=== PATIENT | male | born 1955 | race Caucasian/White ===

== ENCOUNTER 2017-06-16 03:32 | Inpatient (IN) | payer MEDICARE, MEDICAID ==
[~2017-06-16] VITALS: Ht 177.8 cm; Wt 138.3 kg
--- NOTE | 2017-06-16 04:10 | NUR ---
PATIENT IS A POOR HISTORIAN. DOES NOT REMEMBER ALL MEDICATION TAKING AT HOME AND DOSAGES
[2017-06-16] MEDS ORDERED: ACETAMINOPHEN/CODEINE 300-30 MG TABLET PO ONE (04:30)
[2017-06-16] MEDS ORDERED: QUET25TA PO (04:46)
[2017-06-16] MEDS ORDERED: ASPI-605 PO (04:46)
[2017-06-16] MEDS ORDERED: HYDR-4077 PO (04:46)
[2017-06-16] MEDS ORDERED: ARIP2TAB3 PO (04:46)
[2017-06-16] MEDS ORDERED: TRAZ-147 PO (04:46)
--- NOTE | 2017-06-16 04:50 | NUR ---
Pt. admitted to [facility], under care of Dr. Rome Belongs List completed
[2017-06-16] MEDS ORDERED: ACETAMINOPHEN/CODEINE 300-30 MG TABLET ONE (04:51)
[2017-06-16] MEDS ORDERED: ACETAMINOPHEN 325 MG TABLET PO PRN (05:15)
[2017-06-16] MEDS ORDERED: ZOLPIDEM 5 MG TABLET PO PRN (05:15)
[2017-06-16] MEDS ORDERED: MAGNESIUM HYDROXIDE 30 ML LIQUID UDC PO PRN (05:15)
[2017-06-16] MEDS ORDERED: LORAZEPAM 1 MG TABLET PO PRN (05:15)
[2017-06-16] MEDS ORDERED: MAG HYDROX/AL HYDROX/SIMETH 30 ML LIQUID UDC PO PRN (05:15)
[2017-06-16 05:30] VITALS: BP 146/93
--- NOTE | 2017-06-16 06:27 | NUR ---
received to care, from the emergency room, a resident of [facility] and care, a transfer from [facility], where he stated he would cut his neck, if he had to go back to his facility. he has a history of multiple suicide attempts in the past, including a very serious attempt in 1991, when he overdosed and was in a coma. upon arrival, he was calm and cooperative. denies SI at this time. agreed to contact for safety, while in the hospital. he arrived at 0500. assisted with a shower after interview, and assisted to bed. as of 626, he remains asleep. no distress noted. will continue to monitor closely.
[2017-06-16 08:08] VITALS: BP 160/93
[2017-06-16] MEDS: NICOTINE 7 MG/24HR PATCH TD SCH (09:27)
--- NOTE | 2017-06-16 10:53 | NUR ---
As recommended and endorse this morning pt's sister Ms. Violet Gibbons called and notified of pt's admission to [facility]. questions regarding admission answered.
[2017-06-16] MEDS ORDERED: hydrALAZINE HCL 50 MG TABLET PO SCH (12:30)
[2017-06-16 15:36] LABS: BASOPHILS # (AUTO) 0.3 K/uL (0.0-8.0); BASOPHILS % (AUTO) 2.5 % (0.0-2.0); EOSINOPHILS # (AUTO) 0.1 K/uL (0.0-0.7); EOSINOPHILS % (AUTO) 0.6 % (0.0-7.0); HEMATOCRIT 37.5 % (40-50); HEMOGLOBIN 12.1 G/DL (14.0-18.0); LYMPHOCYTES # (AUTO) 2.4 K/UL (0.8-4.8); LYMPHOCYTES % (AUTO) 23.1 % (20.5-51.5); MEAN CORPUSCULAR HEMOGLOBIN 26.6 UUG (27.0-31.0); MEAN CORPUSCULAR HGB CONC 32 g/dL (32.0-37.0); MEAN CORPUSCULAR VOLUME 82.7 FL (82.0-92.0); MONOCYTES # (AUTO) 1.9 K/UL (0.1-1.30); MONOCYTES % (AUTO) 18.4 % (0.0-11.0); NEUTROPHILS # (AUTO) 5.6 K/UL (1.8-8.9); NEUTROPHILS % (AUTO) 55.4 % (38.5-71.5); PLATELET COUNT (AUTO) 249 K/UL (150-450); RED BLOOD CELL COUNT(AUTO) 4.54 MIL/UL (4.7-6.1); WHITE BLOOD COUNT (AUTO) 10.3 K/UL (4.0-11.2)
[2017-06-16 15:45] LABS: CREATININE 1.2 mg/dL (0.6-1.3); POTASSIUM 4.2 mmol/L (3.5-5.1)
[2017-06-16 16:02] LABS: EOSINOPHILS % (MANUAL) 2 % (0-8); LYMPHOCYTES % (MANUAL) 19 % (20-40); MONOCYTES % (MANUAL) 19 % (2-10); NEUTROPHILS % (MANUAL) 60 % (42-75)
[2017-06-16] MEDS: QUETIAPINE FUMARATE 25 MG TABLET PO SCH ×2 (16:42→20:09)
[2017-06-16] MEDS ORDERED: PNEUMOCOCCAL 23-VAL P-SAC VAC 0.5 ML VIAL IM ONE (17:00)
[2017-06-16 17:21] VITALS: BP 156/95
[2017-06-16] MEDS: HYDROCODONE/APAP 5-325MG TABLET PO PRN (20:10)
[2017-06-16] MEDS: ENOXAPARIN SODIUM 40 MG/0.4 ML DISP.SYRIN SQ SCH (20:12)
[2017-06-16 20:35] VITALS: BP 165/94
--- NOTE | 2017-06-16 21:26 | NUR ---
At approx 2004, Patient complain of lower back pain 9/10 in the pain intensity scale, V/S were B/P 165/94mmHg; pulse 60 and O2 sat 97%. [place] 5-325mg was given at 2109. Rechecked at 2119, patient stated "It is improved". V/S: B/P 128/60 pulse 51bpm and O2 sat 94%. Patient noted A/O x 3 and responsive. No changes in LOC. we will continue to monitor.
[2017-06-17] MEDS: HYDROCODONE/APAP 5-325MG TABLET PO PRN ×2 (04:22→22:58)
--- NOTE | 2017-06-17 06:19 | NUR ---
[place] 5-325mg PO PRN was given at 0120. Patient slept for 7 hrs through the night. No SI noted or reported during the shift.
[2017-06-17 07:30] VITALS: BP 122/83
[2017-06-17] MEDS: ESCITALOPRAM OXALATE 10 MG TABLET PO SCH (10:20)
[2017-06-17] MEDS: NICOTINE 7 MG/24HR PATCH TD SCH (10:20)
[2017-06-17] MEDS: ASPIRIN EC 81 MG TABLET.DR PO SCH (10:20)
[2017-06-17] MEDS: hydrALAZINE HCL 50 MG TABLET PO SCH ×5 (10:21→17:33)
[2017-06-17] MEDS: QUETIAPINE FUMARATE 25 MG TABLET PO SCH ×3 (10:22→20:09)
--- NOTE | 2017-06-17 15:25 | NUR ---
Initial discharge instructions: Pt was residing at a [facility] [[address] [place],[address];[phone]] prior to being hospitalized.Per pt,he does not want to return to the [facility],and is requesting new placement.SHELLIE called pt's sister,Violet Roberts [phone] and left voicemail requesting call back to discuss discharge plans.SHELLIE will speak with pt,sister,and MD regarding discharge plans.SW will form safe and proper discharge.
[2017-06-17 16:00] VITALS: BP 150/93
--- NOTE | 2017-06-17 18:42 | NUR ---
PATIENT STILL DEPRESSED AND SLEEPING MOST OF SHIFT LITTLE SELF DIS CLOUSURE TO STAFF, NO S.I VOICED CONTINUE TO MONITOR FOR SAFETY
--- NOTE | 2017-06-17 19:30 | NUR ---
RECEIVED PATIENT LAYING COMFORTABLY IN BED. NO ACUTE DISTRESS NOTED. PATIENT IS ALERT AND ORIENTED X 4. NO SUICIDAL IDEATIONS. HOWEVER, PATIENT DID SAY HE FEELS DEPRESS. BUT NO PLAN TO HARM HIMSELF AT THE MOMENT. SAFETY INITIATED. WILL CONTINUE TO MONITOR FOR SAFETY. PATIENT C/O OF PAIN. WILL REVIEW MEDS, WILL GIVE MEDS ORDERED.
[2017-06-17] MEDS: ENOXAPARIN SODIUM 40 MG/0.4 ML DISP.SYRIN SQ SCH (20:12)
[2017-06-17 20:16] VITALS: BP 134/74
--- NOTE | 2017-06-17 22:58 | NUR ---
PATIENT C/O BACK PAIN 05/07. GAVE MEDICATION, STATED RELIEF.
--- NOTE | 2017-06-18 06:13 | NUR ---
NO CHANGES T/O SHIFT. PATIENT SLEPT 6.5 HOURS. NO BEHAVIORAL CHANGES. NO NOTED SUICIDAL IDEATIONS. SAFETY AND COMFORT MEASURES MAINTAINED T/O SHIFT. VSS. ALL MEDS GIVEN ORDERED. SHOWER CARE PROVIDED. TOTAL LINEN CHANGE. ALL NEEDS MET.
[2017-06-18 07:30] VITALS: BP 144/80
[2017-06-18] MEDS: hydrALAZINE HCL 50 MG TABLET PO SCH (08:32)
[2017-06-18] MEDS: QUETIAPINE FUMARATE 25 MG TABLET PO SCH ×2 (08:34→16:53)
[2017-06-18] MEDS: ESCITALOPRAM OXALATE 10 MG TABLET PO SCH (08:34)
[2017-06-18] MEDS: NICOTINE 7 MG/24HR PATCH TD SCH (08:35)
[2017-06-18] MEDS: ASPIRIN EC 81 MG TABLET.DR PO SCH (08:35)
[2017-06-18] MEDS: HYDROCODONE/APAP 5-325MG TABLET PO PRN ×2 (10:01→20:41)
[2017-06-18 15:00] VITALS: BP 136/68
[2017-06-18 20:14] VITALS: BP 135/85
[2017-06-18] MEDS: QUETIAPINE FUMARATE 100 MG TABLET PO SCH (20:26)
[2017-06-18] MEDS: ENOXAPARIN SODIUM 40 MG/0.4 ML DISP.SYRIN SQ SCH (20:29)
[2017-06-18] MEDS ORDERED: QUETIAPINE FUMARATE 25 MG TABLET PO SCH (21:00)
--- NOTE | 2017-06-18 22:00 | NUR ---
received to care, ambulating in the hallway, appearing anxious, but easy to redirect. compliant with medications and staff direction. denies SI, or the desire to harm self. PRN norco was given at 2040, for lower back pain 04/06. as of 2199, he appears to be asleep. no distress noted. will continue to monitor closely.
--- NOTE | 2017-06-19 03:06 | NUR ---
PRN ativan given for anxiety.
--- NOTE | 2017-06-19 06:00 | NUR ---
slept 6.5 hours, total. continues to sleep. no distress noted.
[2017-06-19 07:30] VITALS: BP 144/88
[2017-06-19] MEDS: hydrALAZINE HCL 50 MG TABLET PO SCH (08:26)
[2017-06-19] MEDS: ASPIRIN EC 81 MG TABLET.DR PO SCH (08:29)
[2017-06-19] MEDS: ESCITALOPRAM OXALATE 10 MG TABLET PO SCH (08:29)
[2017-06-19] MEDS: QUETIAPINE FUMARATE 25 MG TABLET PO SCH ×2 (08:29→17:21)
[2017-06-19] MEDS: NICOTINE 7 MG/24HR PATCH TD SCH (08:30)
[2017-06-19 15:25] VITALS: BP 134/74
[2017-06-19] MEDS: HYDROCODONE/APAP 5-325MG TABLET PO PRN (19:55)
[2017-06-19] MEDS: QUETIAPINE FUMARATE 100 MG TABLET PO SCH (20:05)
[2017-06-19] MEDS: ENOXAPARIN SODIUM 40 MG/0.4 ML DISP.SYRIN SQ SCH (20:05)
[2017-06-19 20:08] VITALS: BP 148/74
--- NOTE | 2017-06-20 06:47 | NUR ---
C/O 04/06 LOWER BACK PAIN, NORCO 5/ ADMINISTERED AT 1954 WITH GOOD EFFECT. REFUSED SHOWER. DENIES SI AT THIS TIME, CONTRACTS FOR SAFETY INSIDE THE HOSPITAL. NO AGGRESSIVE OR COMBATIVE BEHAVIORS DURING SHIFT. SLEPT 7 HOURS.
[2017-06-20 07:30] VITALS: BP 155/78
[2017-06-20] MEDS: NICOTINE 7 MG/24HR PATCH TD SCH (08:12)
[2017-06-20] MEDS: ASPIRIN EC 81 MG TABLET.DR PO SCH (08:12)
[2017-06-20] MEDS: hydrALAZINE HCL 50 MG TABLET PO SCH (08:13)
[2017-06-20] MEDS: ESCITALOPRAM OXALATE 10 MG TABLET PO SCH (08:13)
[2017-06-20] MEDS: QUETIAPINE FUMARATE 25 MG TABLET PO SCH ×2 (08:14→16:40)
[2017-06-20 15:00] VITALS: BP 136/74
[2017-06-20] MEDS: QUETIAPINE FUMARATE 100 MG TABLET PO SCH (20:20)
[2017-06-20] MEDS: ENOXAPARIN SODIUM 40 MG/0.4 ML DISP.SYRIN SQ SCH (20:21)
[2017-06-20] MEDS: HYDROCODONE/APAP 5-325MG TABLET PO PRN (20:26)
[2017-06-20 20:55] VITALS: BP 147/78
[2017-06-21 07:10] LABS: BASOPHILS # (AUTO) 0.1 K/uL (0.0-8.0); BASOPHILS % (AUTO) 0.8 % (0.0-2.0); EOSINOPHILS # (AUTO) 0.1 K/uL (0.0-0.7); EOSINOPHILS % (AUTO) 0.9 % (0.0-7.0); HEMATOCRIT 36.6 % (36.7-47.1); HEMOGLOBIN 12.2 g/dL (12.5-16.3); LYMPHOCYTES # (AUTO) 2.4 K/uL (20.0-40.0); LYMPHOCYTES % (AUTO) 28.3 % (20.5-51.5); MEAN CORPUSCULAR HEMOGLOBIN 27.1 uug (23.8-33.4); MEAN CORPUSCULAR HGB CONC 33 g/dL (32.5-36.3); MONOCYTES # (AUTO) 1.7 K/uL (2.0-10.0); MONOCYTES % (AUTO) 19.3 % (0.0-11.0); NEUTROPHILS # (AUTO) 4.4 K/uL (1.8-8.9); NEUTROPHILS % (AUTO) 50.7 % (38.5-71.5); PLATELET COUNT (AUTO) 224 K/uL (152-348); RED BLOOD CELL COUNT(AUTO) 4.51 MIL/uL (4.06-5.63); WHITE BLOOD COUNT (AUTO) 8.6 K/uL (3.6-10.2)
[2017-06-21 07:22] LABS: CREATININE 1.2 mg/dL (0.6-1.3); MAGNESIUM 1.6 mg/dL (1.8-2.4); PHOSPHOROUS 3.7 mg/dL (2.5-4.9)
[2017-06-21 07:44] VITALS: BP 138/72
[2017-06-21] MEDS: NICOTINE 7 MG/24HR PATCH TD SCH (09:00)
[2017-06-21] MEDS: ESCITALOPRAM OXALATE 10 MG TABLET PO SCH (09:14)
[2017-06-21] MEDS: ASPIRIN EC 81 MG TABLET.DR PO SCH (09:14)
[2017-06-21] MEDS: QUETIAPINE FUMARATE 25 MG TABLET PO SCH ×2 (09:15→17:16)
[2017-06-21] MEDS: hydrALAZINE HCL 50 MG TABLET PO SCH (09:15)
[2017-06-21 09:25] LABS: BASOPHILS % (MANUAL) 1 % (0-2); EOSINOPHILS % (MANUAL) 3 % (0-8); LYMPHOCYTES % (MANUAL) 32 % (20-40); NEUTROPHILS % (MANUAL) 45 % (42-75)
[2017-06-21 09:26] LABS: MONOCYTES % (MANUAL) 19 % (2-10)
[2017-06-21] MEDS ORDERED: MAGNESIUM OXIDE 400 MG TABLET PO ONE (12:00)
[2017-06-21] MEDS: HYDROCODONE/APAP 5-325MG TABLET PO PRN (12:51)
[2017-06-21 16:38] VITALS: BP 143/81
[2017-06-21 20:12] VITALS: BP 148/81
[2017-06-21] MEDS: QUETIAPINE FUMARATE 100 MG TABLET PO SCH (20:18)
[2017-06-21] MEDS: ENOXAPARIN SODIUM 40 MG/0.4 ML DISP.SYRIN SQ SCH (20:23)
[2017-06-22 07:30] VITALS: BP 146/87
[2017-06-22] MEDS: ESCITALOPRAM OXALATE 10 MG TABLET PO SCH (08:32)
[2017-06-22] MEDS: QUETIAPINE FUMARATE 25 MG TABLET PO SCH ×2 (08:32→17:52)
[2017-06-22] MEDS: ASPIRIN EC 81 MG TABLET.DR PO SCH (08:32)
[2017-06-22] MEDS: hydrALAZINE HCL 50 MG TABLET PO SCH (08:33)
[2017-06-22] MEDS: NICOTINE 7 MG/24HR PATCH TD SCH (08:33)
[2017-06-22 16:41] VITALS: BP 153/89
[2017-06-22 20:17] VITALS: BP 150/70
[2017-06-22] MEDS: QUETIAPINE FUMARATE 100 MG TABLET PO SCH (20:42)
[2017-06-22] MEDS: HYDROCODONE/APAP 5-325MG TABLET PO PRN (20:46)
--- NOTE | 2017-06-23 05:54 | NUR ---
Pt has no aggressive and combative behavior, compliant with medication. Calm and pleasant upon approach, cooperative. Pt denies suicidal ideation at this time he contracts for safety inside and outside of the hospital. Pt slept 9 hours and refused shower.
[2017-06-23 07:42] VITALS: BP 135/69
[2017-06-23] MEDS: ESCITALOPRAM OXALATE 10 MG TABLET PO SCH (08:23)
[2017-06-23] MEDS: NICOTINE 7 MG/24HR PATCH TD SCH (08:24)
[2017-06-23] MEDS: hydrALAZINE HCL 50 MG TABLET PO SCH (08:24)
[2017-06-23] MEDS: ASPIRIN EC 81 MG TABLET.DR PO SCH (08:24)
[2017-06-23] MEDS: QUETIAPINE FUMARATE 25 MG TABLET PO SCH (08:24)
[2017-06-23 16:12] VITALS: BP 118/65
[2017-06-23 20:00] VITALS: BP 136/76
[2017-06-23] MEDS: HYDROCODONE/APAP 5-325MG TABLET PO PRN (20:11)
[2017-06-23] MEDS: QUETIAPINE FUMARATE 100 MG TABLET PO SCH (21:12)
--- NOTE | 2017-06-23 22:00 | NUR ---
received to care, lying in bed, isolative, but pleasant upon approach. compliant with medications and staff direction. continues to deny SI, or the desire to harm self. PRN norco was given at 2010, for lower back pain 04/06, which was down to 2/10, by 2099. as of 2199, he appears to be asleep. no distress noted. will continue to monitor closely.
[2017-06-24] MEDS: HYDROCODONE/APAP 5-325MG TABLET PO PRN ×2 (05:01→20:03)
--- NOTE | 2017-06-24 06:00 | NUR ---
slept 6.5 hours, total. assisted with AM care, and shower. states good relief from PRN norco, given at 0501, for lower back pain. no distress noted.
[2017-06-24 07:30] VITALS: BP 123/71
[2017-06-24] MEDS: NICOTINE 7 MG/24HR PATCH TD SCH (08:41)
[2017-06-24] MEDS: ASPIRIN EC 81 MG TABLET.DR PO SCH (08:41)
[2017-06-24] MEDS: hydrALAZINE HCL 50 MG TABLET PO SCH (08:42)
[2017-06-24] MEDS: ESCITALOPRAM OXALATE 10 MG TABLET PO SCH (08:43)
[2017-06-24 16:00] VITALS: BP 133/73
[2017-06-24 19:41] VITALS: BP 141/72
[2017-06-24] MEDS: QUETIAPINE FUMARATE 100 MG TABLET PO SCH (20:03)
--- NOTE | 2017-06-24 22:00 | NUR ---
received to care, lying in bed, isolative, but pleasant upon approach. compliant with medications and staff direction. continues to deny SI, or the desire to harm self. PRN norco was given at 2002, for lower back pain 7/10, which was down to 2/10, by 2099. as of 2199, he appears to be asleep. no distress noted. will continue to monitor closely.
--- NOTE | 2017-06-25 06:00 | NUR ---
slept 9.0 hours, total.
[2017-06-25 07:30] VITALS: BP 143/82
[2017-06-25] MEDS: NICOTINE 7 MG/24HR PATCH TD SCH (08:02)
[2017-06-25] MEDS: ASPIRIN EC 81 MG TABLET.DR PO SCH (08:02)
[2017-06-25] MEDS: ESCITALOPRAM OXALATE 10 MG TABLET PO SCH (08:02)
[2017-06-25] MEDS: hydrALAZINE HCL 50 MG TABLET PO SCH (08:05)
--- NOTE | 2017-06-25 10:39 | NUR ---
DC Note: Patient will be [facility] [place] [address]; ] via ambulance at 1:00 pm. Spoke with PJ at the facility who stated they would accept the patient today. Spoke with patients Violet ledesma [phone] who is aware and agreeable with discharge plans. Patient is aware and agreeable with discharge plans as well. Patient will follow-up with (Psychiatrist) and (Epic Prelude Analyst) at the facility. For smoking cessation, patient was referred to [place] [employer] 800-LUNGUSA and [employer] [phone].
[2017-06-25 16:00] VITALS: BP 156/84
[2017-06-25] MEDS: KETOCONAZOLE 2% CREAM 30 GM TUBE TP SCH (18:00)
[2017-06-25 20:00] VITALS: BP 158/86
[2017-06-25] MEDS: QUETIAPINE FUMARATE 100 MG TABLET PO SCH (21:21)
[2017-06-25] MEDS: HYDROCODONE/APAP 5-325MG TABLET PO PRN (21:47)
[2017-06-26 07:30] VITALS: BP 155/80
[2017-06-26] MEDS: NICOTINE 7 MG/24HR PATCH TD SCH (08:15)
[2017-06-26] MEDS: KETOCONAZOLE 2% CREAM 30 GM TUBE TP SCH ×2 (08:16→17:46)
[2017-06-26] MEDS: ESCITALOPRAM OXALATE 10 MG TABLET PO SCH (08:16)
[2017-06-26] MEDS: hydrALAZINE HCL 50 MG TABLET PO SCH (08:16)
[2017-06-26] MEDS: ASPIRIN EC 81 MG TABLET.DR PO SCH (08:16)
--- NOTE | 2017-06-26 14:23 | NUR ---
DC Note Thursday06/27/17: Patient will be discharged to [facility] [[place] [address]; ] via ambulance at 12:00 pm. Spoke with PJ at the facility who stated they would accept the patient today. Spoke with patients Violet ledesma [phone] who is aware and agreeable with discharge plans. Patient is aware and agreeable with discharge plans as well. Patient will follow-up with (Psychiatrist) and (Pick Up Attendant) at the facility. For smoking cessation, patient was referred to [place] [employer] 800-LUNGUSA and [employer] [phone].
[2017-06-26 15:00] VITALS: BP 150/83
[2017-06-26] MEDS: HYDROCODONE/APAP 5-325MG TABLET PO PRN (20:12)
[2017-06-26 20:14] VITALS: BP 140/72
[2017-06-26] MEDS: QUETIAPINE FUMARATE 100 MG TABLET PO SCH (20:59)
--- NOTE | 2017-06-26 22:00 | NUR ---
received to care, lying in bed, isolative, but pleasant upon approach. compliant with medications and staff direction. continues to deny SI, or the desire to harm self. PRN norco was given at 2011, for lower back pain 6/10, which was down to 1/10, by 2099. as of 2199, he appears to be asleep. no distress noted. will continue to monitor closely.
--- NOTE | 2017-06-27 06:00 | NUR ---
slept 7.5 hours, total.
[2017-06-27 07:30] VITALS: BP 152/78
[2017-06-27 08:40] VITALS: BP 152/78
[2017-06-27] MEDS: hydrALAZINE HCL 50 MG TABLET PO SCH (08:40)
[2017-06-27] MEDS: ASPIRIN EC 81 MG TABLET.DR PO SCH (08:40)
[2017-06-27] MEDS: NICOTINE 7 MG/24HR PATCH TD SCH (08:40)
[2017-06-27] MEDS: ESCITALOPRAM OXALATE 10 MG TABLET PO SCH (08:40)
[2017-06-27] MEDS: KETOCONAZOLE 2% CREAM 30 GM TUBE TP SCH (08:41)
--- NOTE | 2017-06-27 13:15 | NUR ---
[facility]: Nursing Notes: Discharge Notes: Patient is awake and responding to his name, A/Ox4, cooperative and pleasant with staff, denies any SI/HI, denies any AH/VH, denies any pain or discomfort, denies any SOB, discharge to [facility] at [address] [place] [phone] , report given to Melody MANCILLA Infrastructure Analyst, Dr. Rome (psychiatrist) and Dr. Celis (interior design faculty member) will continue with aftercare at the facility, transported to facility via ambulance, took all his belongings with him. Patient will follow-up with (Psychiatrist) and (Manufacturing Scheduler) at the facility. For smoking cessation, patient was referred to [place] [employer] [phone]-LUNGUSA and [employer] [phone].
== END 2017-06-27 13:15 | DRG 885 ==
LOC: ER 03:40 → GPS 04:05
PROVIDERS: ADMIT Psychiatry & Neurology Psychiatry; ATTEND Internal Medicine
DX: F25.1 Schizoaffective disorder, depressive type (principal); E44.1 Mild protein-calorie malnutrition; R45.851 Suicidal ideations; Z68.41 Body mass index [BMI] 40.0-44.9, adult; I10 Essential (primary) hypertension; D63.8 Anemia in other chronic diseases classified elsewhere; E66.01 Morbid (severe) obesity due to excess calories; E78.5 Hyperlipidemia, unspecified; M19.90 Unspecified osteoarthritis, unspecified site; Z79.899 Other long term (current) drug therapy; F32.9 Major depressive disorder, single episode, unspecified; E88.09 Other disorders of plasma-protein metabolism, not elsewhere classified; Z91.5 Personal history of self-harm
CPT/HCPCS: 36415; 70030-TC; 71010; 83735; 84100; 84443; 85025; 90732; 93005; A4663; A9150; J1650